=== PATIENT | male | born 1960 | race Caucasian/White ===

== ENCOUNTER → 2017-02-20 | Outpatient (CLI) | payer OTHER ==
[~2017-02-20] MED LIST: AMOX-356 BC
[2017-02-20 14:20] VITALS: BP 142/98
--- NOTE | 2017-02-20 14:20 | Urgent Care T Sheet Gen (E) ---
Intake General Temperature (Fahrenheit): 97.5 Pulse: 101 Blood Pressure Systolic: 142 Blood Pressure Diastolic: 98 Respirations: 20 SPO2: 98 Chief Complaint: UC Ear/Nose/Throat Complaint Description of Symptoms Patient present with complaints of sinus pressure, headache, ear pressure x 5 days. States he gets about 3-4 sinus infections per year and usually requires antibiotics in order to resolve. He has been worked up for these with his PCP, Dr. Michoacano Yadav who is in practice in [place]. Patient is currently working locally with [employer] and will be commuting back home tomorrow. He has been taking Sudafed for the congestion and headache, but presents today because this does not seem to be helping. History of Present Illness Onset & Duration: Days (5) Severity: Moderate Associated Symptoms: Headaches, Nasal congestion, Sinus congestion Recent Trauma: No Similar Sympotms Previously: Yes Allergies: Coded Allergies: No Known Drug Allergies (Unverified , 02/20/17) Respiratory Constitutional Symptoms: No Chills, No Fever EENTM: Ear pain Nose CongestionNo Throat pain Respiratory: No Cough, No Short of breath Cardiovascular: No Chest pain Gastrointestinal/Abdominal: No Abdominal pain, No Nausea, No Vomiting Genitourinary: No symptoms reported Musculoskeletal: No symptoms reported Skin: No symptoms reported Neurological: Headache Hematologic/Lymphatic: No symptoms reported Immunologic/Allergies: No Grass allergies, No Pollen allergy All Other Systems Reviewed Remaining Systems: All other systems reviewed with negative findings Past Vcxjzsh-Abciui-Uwtcwj Hx Respiratory Respiratory History: SOB, None Cardiovascular Cardiovascular History: None Gastrointestinal GI/Endocrine History: None Physical Exam Physical Exam General Appearance: WD/WN No apparent distress Eyes, Ears, Nose, Throat Ex: PERRL/EOMI TMs normal Pharynx normal Other ( frontal and maxillary sinus tenderness) Neck Exam: Non tender SuppleNo Lymphadenopathy Respiratory Exam: Lungs clear Normal breath sounds No respiratory distress Cardiovascular Exam: Regular rate, rhythm No murmur Departure Urgent Care Impression Chief Complaint: UC Ear/Nose/Throat Complaint Impression: Primary Impression: Sinusitis Departure Disposition: HOME OR SELF-CARE Condition: Stable Additional Instructions: Discussing with patient about symptoms and treatment. Will start on Augmentin XR x 7 days. Encouraged him to start Flonase since I believe this will help with the pressure in his ears. He may continue taking Sudafed and tylenol for headache. Since patient will be flying tomorrow, discussed with him using Afrin nasal spray if congestion is bad at time of flight. Cautioned patient that this should only be taken for upcoming flights and should never be taken for more than 1-2 days because it can cause rebound congestion. Patient stated understanding. He will contact his PCP or return to Urgent Care if he is not improving since patient states he will be returning to [place] again next week for work. Scripts Amoxicillin/Clavulanate Potassium (Augmentin XR 1,000mg/62.5mg)1 Each Tab.er.12h2 Tab BC BID Infection #28 TAB.SA Ref 0 Prov:AYDEE GOLDBERG 02/20/17 End of report . AYDEE GOLDBERG February 20, 2017 14:20
== END ==
LOC: MHUC 13:33
PROVIDERS: ATTEND Physician Assistant Surgical
DX: J32.9 Chronic sinusitis, unspecified (principal)

== ENCOUNTER → 2017-03-04 | Outpatient (CLI) | payer OTHER ==
[2017-03-04 16:29] VITALS: BP 115/82
--- NOTE | 2017-03-04 16:29 | Urgent Care T Sheet Gen (E) ---
Intake General Temperature (Fahrenheit): 98.3 Pulse: 104 Blood Pressure Systolic: 115 Blood Pressure Diastolic: 82 Respirations: 20 SPO2: 98 History of Present Illness Initial Comments Patient presents for a recheck of his sinus infection. Was seen and treated with Augmentin on February 20. Patient states it helped some but didn't completely alleviate his symptoms. States he gets several sinus infections a year and usually Levaquin is needed to take care of them. Patient lives in [facility] during the workweek then heads home to [place] for the weekend. Has had allergy testing for things at home however isn't sure if he is allergic to anything there. No daily antihistamine however has been taking Sudafed for congestion. No fever. Does note dental pain. Allergies: Coded Allergies: No Known Drug Allergies (Unverified , 02/20/17) Home Meds Active Scripts Amoxicillin/Clavulanate Potassium (Augmentin XR 1,000mg/62.5mg)1 Each Tab.er.12h2 Tab BC BID Infection #28 TAB.SA Ref 0 Prov:AYDEE GOLDBERG 02/20/17 Respiratory Constitutional Symptoms: No syptoms reported EENTM: Nose Congestion Throat pain Respiratory: No symptoms reported Cardiovascular: No symptoms reported Gastrointestinal/Abdominal: No symptoms reported All Other Systems Reviewed Remaining Systems: All other systems reviewed with negative findings Past Rvxwizb-Apjtkk-Bwavbo Hx Respiratory Respiratory History: SOB, None Cardiovascular Cardiovascular History: None Gastrointestinal GI/Endocrine History: None Physical Exam Physical Exam General Appearance: WD/WN No apparent distress Eyes, Ears, Nose, Throat Ex: TMs normal Pharyngeal erythema (thick, purulent PND) Other (red, swollen nasal turbinates with purulent drainage. tender over frontal and maxillary sinuses, maxillary are more tender.) Neck Exam: SuppleNo Lymphadenopathy Respiratory Exam: Lungs clear Normal breath sounds Cardiovascular Exam: Regular rate, rhythm Departure Urgent Care Impression Impression: Primary Impression: Sinusitis Qualified Code: J01.00 - Acute maxillary sinusitis, unspecified Departure Disposition: HOME OR SELF-CARE Condition: Stable Additional Instructions: Since the Augmentin didn't help, I have started the patient on Levaquin which he states is needed to completely alleviate his infections. Levaquin 500mg daily x 10 days, called to [email or web address] as our electronic program was down. Rest. Fluids. DC Sudafed Return as needed If no better, may need either steroid shot or oral steroid. Patient understands DC instructions. All questions were answered. End of report . HENRI GALLEGOS March 04, 2017 16:29
== END ==
LOC: MHUC 15:35
PROVIDERS: ATTEND Physician Assistant
DX: J01.00 Acute maxillary sinusitis, unspecified (principal)
CPT/HCPCS: 99213